=== PATIENT | male | born 1980 | race Hispanic/Latino ===

== ENCOUNTER 2022-02-10 09:00 | Emergency (ER) | payer BC ==
--- NOTE | 2022-02-10 10:17 | EDPHYS ---
Physician Documentation [facility] Name: Andrade Cunningham Age: 41 yrs Sex: Male : 1980 Arrival Date: 02/10/2022 Time: 09:03 Bed 13 Private MD: ED Physician Shaun Varma HPI: 02/10 16:40 This 41 yrs old Male presents to ER via Ambulatory with complaints of kb Shortness Of Breath, Cough, Congestion, Sore Throat. 16:40 The patient has not recently seen a physician. kb 16:40 The patient or guardian reports cough, difficulty breathing. Onset: The kb symptoms/episode began/occurred 4 day(s) ago. Severity of symptoms: At their worst the symptoms were moderate, in the emergency department the symptoms are unchanged. Modifying factors: The symptoms are alleviated by nothing, the symptoms are aggravated by nothing. Associated signs and symptoms: Pertinent positives: rhinorrhea, sore throat. The patient has not experienced similar symptoms in the past. Historical: - Allergies: 09:07 No Known Allergies; aa5 - Home Meds: 09:07 None [Active]; aa5 - PMHx: 09:07 None; aa5 - PSHx: 09:07 None; aa5 - Immunization history:: Adult Immunizations unknown. - Social history:: Smoking status: Patient/guardian denies using tobacco, Patient uses street drugs, marijuana. ROS: 16:38 Constitutional: Negative for fever, chills, and weight loss. kb 16:38 ENT: Positive for rhinorrhea, sinus congestion, sore throat. 16:38 Respiratory: Positive for cough, shortness of breath. 16:38 All other systems are negative. Exam: 16:39 Constitutional: This is a well developed, well nourished patient who is awake, alert, kb and in no acute distress. Head/Face: Normocephalic, atraumatic. ENT: Moist Mucous membranes Cardiovascular: Regular rate and rhythm with a normal S1 and S2. No gallops, murmurs, or rubs. No pulse deficits. Respiratory: Respirations even and unlabored. No increased work of breathing. Talking in full sentences Skin: Warm, dry with normal turgor. Normal color. MS/ Extremity: Pulses equal, no cyanosis. Neurovascular intact. Full, normal range of motion. Neuro: Awake and alert, GCS 15, oriented to person, place, time, and situation. Moves all extremities. Normal gait. Psych: Awake, alert, with orientation to person, place and time. Behavior, mood, and affect are within normal limits. Vital Signs: 09:08 BP 144 / 100; Pulse 90; Resp 18 S; Temp 98.3(O); Pulse Ox 100% on R/A; Weight 81.65 kg aa5 (R); Height 5 ft. 5 in. (165.10 cm) (R); 09:08 Body Mass Index 29.95 (81.65 kg, 165.10 cm) aa5 MDM: 09:11 Patient medically screened. kb 16:37 Data reviewed: vital signs, nurses notes. Data interpreted: Pulse oximetry: on room air kb is 100 %. Interpretation: normal. Counseling: I had a detailed discussion with the patient and/or guardian regarding: the historical points, exam findings, and any diagnostic results supporting the discharge/admit diagnosis, lab results, the need for outpatient follow up, a family practitioner, to return to the emergency department if symptoms worsen or persist or if there are any questions or concerns that arise at home. 02/10 09:11 Order name: Flu; Complete Time: 10:16 kb 02/10 09:11 Order name: Strep; Complete Time: 10:16 kb 02/10 10:11 Order name: Throat Culture EDMS Administered Medications: No medications were administered Disposition: 19:49 Co-signature as Attending Physician, Shaun Varma DO I was immediately available on-site ms3 in the Emergency Department for consultation in the care of the patient.. Disposition Summary: 02/10/22 10:17 Discharge Ordered Location: Home kb Condition: Stable kb Diagnosis - Acute upper respiratory infection, unspecified kb Followup: kb - With: Emergency Department - When: As needed - Reason: Worsening of condition Followup: kb - With: Private Physician - When: 2 - 3 days - Reason: Recheck today's complaints, Continuance of care, Re-evaluation by your physician Discharge Instructions: - Upper Respiratory Infection, Adult, [id number] kb - Viral Respiratory Infection, [id number] kb - Discharge Summary Sheet tw2 Forms: - Medication Reconciliation Form kb - Thank You Letter kb - Antibiotic Education kb - Prescription Opioid Use kb Signatures: Dispatcher [employer] EDMS Asmita Momin FNP-C MANAGER STEEL-Yesika Allen, RN RN aa5 Shaun Varma DO DO ms3 Corrections: (The following items were deleted from the chart) : 09:12 SARS-COV-2 RT PCR+MOL.LAB.BRZ ordered. EDMS EDMS 10:13 09:12 Chest Single View+RAD.RAD.BRZ ordered. EDMS EDMS
--- NOTE | 2022-02-10 10:17 | ER ---
Nurse's Notes [facility] Name: Andrade Cunningham Age: 41 yrs Sex: Male : 1980 Arrival Date: 02/10/2022 Time: 09:03 Bed 13 Private MD: Diagnosis: Acute upper respiratory infection, unspecified Presentation: 02/10 09:06 Chief complaint: Patient states: fatigue, cough, SOB, sore throat that began Monday. aa5 Coronavirus screen: congestion, cough unrelated to allergies, fatigue, shortness of breath. Ebola Screen: No symptoms or risks identified at this time. Initial Sepsis Screen: Does the patient meet any 2 criteria? No. Patient's initial sepsis screen is negative. Does the patient have a suspected source of infection? No. Patient's initial sepsis screen is negative. Risk Assessment: Do you want to hurt yourself or someone else? Patient reports no desire to harm self or others. Onset of symptoms was January 2022. 09:06 Method Of Arrival: Ambulatory aa5 09:06 Acuity: KATERINA 4 aa5 Historical: - Allergies: 09:07 No Known Allergies; aa5 - Home Meds: 09:07 None [Active]; aa5 - PMHx: 09:07 None; aa5 - PSHx: 09:07 None; aa5 - Immunization history:: Adult Immunizations unknown. - Social history:: Smoking status: Patient/guardian denies using tobacco, Patient uses street drugs, marijuana. Screenin:10 Abuse screen: Denies threats or abuse. Nutritional screening: No deficits noted. tw2 Tuberculosis screening: No symptoms or risk factors identified. Fall Risk None identified. Assessment: 09:18 Reassessment: pt states "i am not taking the covid swab and can i get a note for the tw2 passed few days", provider notified of not wanting covid swab. pt agreeable to flu and strep. did not tolerate well and pulled away with both swabs. General: Appears in no apparent distress. Behavior is calm, cooperative. Pain: Denies pain. Neuro: Level of Consciousness is awake, alert, obeys commands, Oriented to person, place, time, situation. Respiratory: Airway is patent Respiratory effort is even, unlabored, Respiratory pattern is regular, symmetrical. Musculoskeletal: Range of motion: intact in all extremities. 10:27 Reassessment: Patient appears in no apparent distress at this time. No changes from tw2 previously documented assessment. Patient and/or family updated on plan of care and expected duration. Pain level reassessed. Patient is alert, oriented x 3, equal unlabored respirations, skin warm/dry/pink. Vital Signs: 09:08 BP 144 / 100; Pulse 90; Resp 18 S; Temp 98.3(O); Pulse Ox 100% on R/A; Weight 81.65 kg aa5 (R); Height 5 ft. 5 in. (165.10 cm) (R); 09:08 Body Mass Index 29.95 (81.65 kg, 165.10 cm) aa5 ED Course: 09:03 Patient arrived in ED. mr 09:06 Arm band placed on. aa5 09:07 Triage completed. aa5 09:09 Bed in low position. Call light in reach. Pulse ox on. NIBP on. tw2 09:10 Jennifer Rg RN is Primary Nurse. tw2 09:11 Asmita Momin FNP-C is [facility]. kb 09:11 Shuan Varma DO is Attending Physician. kb 10:27 No provider procedures requiring assistance completed. Patient did not have IV access tw2 during this emergency room visit. Administered Medications: No medications were administered Medication: 09:11 VIS not applicable for this client. tw2 Outcome: 10:17 Discharge ordered by . kb 10:27 Discharged to home ambulatory. tw2 10:27 Condition: stable 10:27 Discharge instructions given to patient, Instructed on discharge instructions, follow up and referral plans. Demonstrated understanding of instructions, follow-up care. 10:27 Patient left the ED. tw2 Signatures: Asmita Momin FNP-C FNP-Ckb Yany Skinner, Yesika, RN RN aa5 Jennifer Rg RN RN tw2
== END 2022-02-10 10:27 | disposition home or self-care (01) ==
LOC: ER 09:00
DX: J06.9 Acute upper respiratory infection, unspecified (principal); Z20.822 Contact with and (suspected) exposure to COVID-19
CPT/HCPCS: 87070; 87081; 87804; 99283

== ENCOUNTER 2022-02-10 12:49 | Emergency (ER) | payer BC ==
--- NOTE | 2022-02-10 14:25 | ER ---
Nurse's Notes [facility] Name: Andrade Cunningham Age: 41 yrs Sex: Male : 1980 Arrival Date: 02/10/2022 Time: 12:50 Bed Waiting Private MD: Diagnosis: Acute upper respiratory infection, unspecified Presentation: 02/10 13:02 Chief complaint: Patient states: needs COVID test for work, was seen here earlier and iw was negative for flu. Coronavirus screen: Client presents with at least one sign or symptom that may indicate coronavirus-19. Ebola Screen: Patient negative for fever greater than or equal to 101.5 degrees Fahrenheit, and additional compatible Ebola Virus Disease symptoms Patient denies exposure to infectious person. Patient denies travel to an Ebola-affected area in the 21 days before illness onset. No symptoms or risks identified at this time. Initial Sepsis Screen: Does the patient meet any 2 criteria? No. Patient's initial sepsis screen is negative. Does the patient have a suspected source of infection? No. Patient's initial sepsis screen is negative. Risk Assessment: Do you want to hurt yourself or someone else? Patient reports no desire to harm self or others. Onset of symptoms. 13:02 Method Of Arrival: Ambulatory iw 13:02 Acuity: KATERINA 4 iw Triage Assessment: 14:20 General: Appears in no apparent distress. Behavior is calm, cooperative. Pain: Denies iw pain. Historical: - Allergies: 14:25 No Known Allergies; aa5 - PMHx: 14:25 None; aa5 - PSHx: 14:25 None; aa5 - Immunization history:: Adult Immunizations unknown. - Social history:: Smoking status: unknown. Screenin:20 Abuse screen: Denies threats or abuse. Denies injuries from another. Nutritional iw screening: No deficits noted. Tuberculosis screening: No symptoms or risk factors identified. Fall Risk None identified. Assessment: 14:25 Reassessment: Patient is alert, oriented x 3, equal unlabored respirations, skin aa5 warm/dry/pink. Vital Signs: 13:08 BP 144 / 101; Pulse 101; Resp 16; Temp 98.4; Pulse Ox 99% on R/A; iw ED Course: 12:50 Patient arrived in ED. as 12:51 Asmita Momin FNP-C is PHCP. kb 12:51 Shaun Varma DO is Attending Physician. kb 13:02 Kiesha Powell, RN is Primary Nurse. iw 13:03 Triage completed. iw 13:09 Arm band placed on. iw 13:09 Patient has correct armband on for positive identification. iw 14:25 No provider procedures requiring assistance completed. Patient did not have IV access aa5 during this emergency room visit. Administered Medications: No medications were administered Medication: 14:25 VIS not applicable for this client. iw Outcome: 14:24 Discharge ordered by MD. kb 14:25 Discharged to home ambulatory. aa5 14:25 Condition: stable 14:25 Discharge instructions given to patient, Instructed on discharge instructions, follow up and referral plans. Demonstrated understanding of instructions, follow-up care. 14:28 Patient left the ED. iw Signatures: Asmita Momin, MANAGER MARKET INTELLIGENCE-C MANAGER MARKET [employer]LLIGENCE-Johnna Mendoza as Kiesha Powell, RN RN iw Yesika Farah, RN RN aa5
--- NOTE | 2022-02-10 14:25 | EDPHYS ---
Physician Documentation [facility] Name: Andrade Cunningham Age: 41 yrs Sex: Male : 1980 Arrival Date: 02/10/2022 Time: 12:50 Bed Waiting Private MD: ED Physician Shaun Varma HPI: 02/10 14:17 This 41 yrs old Male presents to ER via Ambulatory with complaints of r/o kb covid. 14:17 The patient or guardian reports cough, that is intermittent, described as mild, kb difficulty breathing. Onset: The symptoms/episode began/occurred 4 day(s) ago. Severity of symptoms: At their worst the symptoms were moderate, in the emergency department the symptoms are unchanged. Modifying factors: The symptoms are alleviated by nothing, the symptoms are aggravated by nothing. Associated signs and symptoms: Pertinent positives: rhinorrhea, sore throat. The patient has not experienced similar symptoms in the past. The patient has been recently seen at the [facility] Emergency Department, today, by me, for similar complaints labs were performed. Pt reports cough, congestion, sore throat and shortness of breath that started Monday. Was seen earlier today and refused a covid test, but came back now to have it done because his job is requiring it. . Historical: - Allergies: 14:25 No Known Allergies; aa5 - PMHx: 14:25 None; aa5 - PSHx: 14:25 None; aa5 - Immunization history:: Adult Immunizations unknown. - Social history:: Smoking status: unknown. ROS: 14:15 Constitutional: Negative for fever, chills, and weight loss. kb 14:15 ENT: Positive for rhinorrhea, sinus congestion, sore throat. 14:15 Respiratory: Positive for cough, shortness of breath, Negative for dyspnea on exertion, hemoptysis, orthopnea, pleurisy, sputum production, wheezing. 14:15 All other systems are negative. Exam: 14:17 Constitutional: This is a well developed, well nourished patient who is awake, alert, kb and in no acute distress. Head/Face: Normocephalic, atraumatic. ENT: Moist Mucous membranes Cardiovascular: Regular rate and rhythm with a normal S1 and S2. No gallops, murmurs, or rubs. No pulse deficits. Respiratory: Respirations even and unlabored. No increased work of breathing. Talking in full sentences Abdomen/GI: Soft, non-tender. No distention Skin: Warm, dry with normal turgor. Normal color. MS/ Extremity: Pulses equal, no cyanosis. Neurovascular intact. Full, normal range of motion. Neuro: Awake and alert, GCS 15, oriented to person, place, time, and situation. Moves all extremities. Normal gait. Psych: Awake, alert, with orientation to person, place and time. Behavior, mood, and affect are within normal limits. Vital Signs: 13:08 BP 144 / 101; Pulse 101; Resp 16; Temp 98.4; Pulse Ox 99% on R/A; iw MDM: 12:51 Patient medically screened. kb 14:16 Data reviewed: vital signs, nurses notes. Data interpreted: Pulse oximetry: on room air kb is 99 %. Interpretation: normal. 14:17 Counseling: I had a detailed discussion with the patient and/or guardian regarding: the kb historical points, exam findings, and any diagnostic results supporting the discharge/admit diagnosis, lab results, the need for outpatient follow up, a family practitioner, to return to the emergency department if symptoms worsen or persist or if there are any questions or concerns that arise at home. 02/10 12:53 Order name: COVID-19 SARS RT PCR (Document "Date of Onset" if Symptomatic); Complete kb Time: 14:24 Administered Medications: No medications were administered Disposition: 19:52 Co-signature as Attending Physician, Shaun HODGSON was immediately available on-site ms3 in the Emergency Department for consultation in the care of the patient.. Disposition Summary: 02/10/22 14:24 Discharge Ordered Location: Home kb Condition: Stable kb Diagnosis - Acute upper respiratory infection, unspecified kb Followup: kb - With: Emergency Department - When: As needed - Reason: Worsening of condition Followup: kb - With: Private Physician - When: 2 - 3 days - Reason: Recheck today's complaints, Continuance of care, Re-evaluation by your physician Discharge Instructions: - Discharge Summary Sheet kb - Upper Respiratory Infection, Adult, [id number] kb - Viral Respiratory Infection, [id number] kb Forms: - Medication Reconciliation Form kb - Thank You Letter kb - Antibiotic Education kb - Prescription Opioid Use kb - Work release form iw Signatures: Dispatcher [employer] Asmita Ibrahim, MANUFACTURING SUPERVISOR 2ND SHIFT-C MANUFACTURING SUPERVISOR 2ND SHIFT-Ckb Kiesha Powell, RN RN iw Yesika Farah RN RN aa5 Shaun Varma DO DO ms3
[2022-02-10 14:37] VITALS: BP 144/101; TEMP 98.4; O2SAT 99
== END 2022-02-10 14:28 | disposition home or self-care (01) ==
LOC: ER 12:49
DX: J06.9 Acute upper respiratory infection, unspecified (principal); Z20.822 Contact with and (suspected) exposure to COVID-19
CPT/HCPCS: 99281; U0003